=== PATIENT | male | born 1955 | race Caucasian/White ===

== ENCOUNTER 2021-08-24 13:43 | Observation (INO) | payer BC ==
[2021-08-24 14:11] LABS: #Eosinphils 0.1 thou/uL (0.0-0.7); #Lymphocytes 2.3 thou/uL (1.20-3.40); #Monocytes 0.4 thou/uL (0.11-0.59); #Neutrophils 6.1 thou/uL (1.40-6.50); %Basophils 0.2 % (0.0-1.0); %Eosinophils 1.2 % (0.0-10.0); %Lymphocytes 26.1 % (21.0-51.0); %Monocytes 4.4 % (0.0-10.0); %Neutrophils 68.1 % (42.0-75.0); Hemoglobin 14.1 g/dL (14.0-18.0); Mean Corpuscular HGB CONC 32.4 g/dL (32.0-36.0); Mean Corpuscular Hemoglobin 30.3 pg (27.0-31.0); Mean Corpuscular Volume 93.5 fL (78.0-98.0); Mean Platelet Volume 7.4 fL (7.4-10.4); Platelet Count 215 thou/uL (130-400); RBC Distribution Width 11.6 % (11.5-14.5); Red Blood Cell (RBC) Count 4.65 mill/uL (4.70-6.10); White Blood Cell (WBC) Count 8.9 thou/uL (4.8-10.8)
[2021-08-24 14:40] LABS: ALT (SGPT) 78 U/L (8-55); AST (SGOT) 83 U/L (5-34); Albumin 4.3 g/dL (3.4-4.8); Alkaline Phosphatase 42 U/L (40-110); Anion Gap 12 mmol/L (10-20); BUN (Urea Nitrogen) 24 mg/dL (8.4-25.7); Bilirubin, Total 0.4 mg/dL (0.2-1.2); Calc. Creatinine Clearance 0 mL/min (70-130); Calcium 9.6 mg/dL (7.8-10.44); Carbon Dioxide 26 mmol/L (23-31); Chloride 108 mmol/L (98-107); Globulin 3.3 g/dL (2.4-3.5); Glucose 138 mg/dL (80-115); Potassium 4.1 mmol/L (3.5-5.1); Protein, Total 7.6 g/dL (5.8-8.1); Sodium 142 mmol/L (136-145)
[2021-08-24] MEDS ORDERED: Iopamidol 370 76% 100 ML VIAL ONE (15:01)
[2021-08-24] MEDS ORDERED: Lidocaine 1% w/Epinephrine 1:100K 20 ML VIAL ONE (16:22)
[2021-08-24] MEDS ORDERED: Bacitracin 1 PK ONE (16:45)
[2021-08-24] MEDS ORDERED: Boostrix 0.5 ML (Tdap) VIAL ONE (16:49)
[2021-08-24] MEDS ORDERED: Ketorolac Tromethamine 30 MG/ML VIAL ONE (16:49)
[2021-08-24] MEDS ORDERED: Morphine 4 MG/ML VIAL ONE (16:49)
[2021-08-24] MEDS ORDERED: Dextrose 50% Abboject 50 ML SYRINGE SLOW IVP PRN (17:13)
[2021-08-24] MEDS ORDERED: Ondansetron PF 4 MG/2 ML Vial IVP PRN (17:13)
[2021-08-24] MEDS ORDERED: Dextrose 5% in Water 1,000 ML IV PRN (17:13)
[2021-08-24] MEDS ORDERED: Ondansetron ODT 4 MG TAB PO PRN (17:13)
[2021-08-24] MEDS ORDERED: hydrALAZINE 20 MG/ML VIAL SLOW IVP PRN (17:13)
[2021-08-24] MEDS ORDERED: Sodium Chloride 0.9% 1,000 ML IV SCH (17:15)
[2021-08-24] MEDS ORDERED: Rib Fracture Protocol PO SCH (17:15)
[2021-08-24 18:40] VITALS: BMI 26.9
[2021-08-24] MEDS ORDERED: Cyclobenzaprine 10 MG TAB PO PRN (19:31)
[2021-08-24] MEDS: Famotidine 20 MG TAB PO SCH (20:16)
[2021-08-24] MEDS: Gabapentin 300 MG CAP PO SCH (20:16)
[2021-08-24] MEDS: Ibuprofen 200 MG TAB PO SCH (20:16)
[2021-08-25] MEDS: Acetaminophen 500 MG TAB PO SCH ×3 (00:39→11:41)
[2021-08-25] MEDS: traMADol HCl 50 MG TAB PO SCH ×3 (00:39→11:41)
[2021-08-25] MEDS: Ibuprofen 200 MG TAB PO SCH (05:20)
[2021-08-25 05:25] VITALS: TEMP 97.9
[2021-08-25 05:33] LABS: #Eosinphils 0.1 thou/uL (0.0-0.7); #Lymphocytes 1.3 thou/uL (1.20-3.40); #Monocytes 0.6 thou/uL (0.11-0.59); #Neutrophils 4.7 thou/uL (1.40-6.50); %Eosinophils 0.9 % (0.0-10.0); %Lymphocytes 19.8 % (21.0-51.0); %Monocytes 8.9 % (0.0-10.0); %Neutrophils 70.5 % (42.0-75.0); Hemoglobin 12.1 g/dL (14.0-18.0); Mean Corpuscular HGB CONC 34.4 g/dL (32.0-36.0); Mean Corpuscular Volume 93.1 fL (78.0-98.0); Mean Platelet Volume 7.2 fL (7.4-10.4); Platelet Count 160 thou/uL (130-400); RBC Distribution Width 11.7 % (11.5-14.5); Red Blood Cell (RBC) Count 3.78 mill/uL (4.70-6.10); White Blood Cell (WBC) Count 6.7 thou/uL (4.8-10.8)
[2021-08-25 05:55] LABS: Anion Gap 11 mmol/L (10-20); BUN (Urea Nitrogen) 21 mg/dL (8.4-25.7); Calc. Creatinine Clearance 90 mL/min (70-130); Calcium 8.6 mg/dL (7.8-10.44); Carbon Dioxide 27 mmol/L (23-31); Chloride 106 mmol/L (98-107); Glucose 129 mg/dL (80-115); Magnesium 1.9 mg/dL (1.6-2.6); Phosphorus 3.1 mg/dL (2.3-4.7); Potassium 3.8 mmol/L (3.5-5.1); Sodium 140 mmol/L (136-145)
[2021-08-25] MEDS: Gabapentin 300 MG CAP PO SCH (08:40)
[2021-08-25] MEDS: Famotidine 20 MG TAB PO SCH (08:40)
[2021-08-25 11:53] VITALS: BP 139/77
[2021-08-25 11:59] LABS: SARS-CoV-2 PCR by NAA Not Detected (NotDetected)
[2021-08-26] MEDS ORDERED: Levothyroxine Sodium 25 MCG TAB PO SCH (06:00)
[2021-08-26] MEDS ORDERED: Levothyroxine Sodium 112 MCG TAB PO SCH (06:00)
== END 2021-08-25 13:34 | disposition home or self-care (01) ==
LOC: ERS 13:43 → SJJU 16:53
PROVIDERS: ADMIT Surgery; ATTEND Surgery
DX: S22.41XA Multiple fractures of ribs, right side, initial encounter for closed fracture (principal); G89.11 Acute pain due to trauma; R93.5 Abnormal findings on diagnostic imaging of other abdominal regions, including retroperitoneum; N28.1 Cyst of kidney, acquired; I10 Essential (primary) hypertension; E78.5 Hyperlipidemia, unspecified; E03.9 Hypothyroidism, unspecified; S81.811A Laceration without foreign body, right lower leg, initial encounter; K76.0 Fatty (change of) liver, not elsewhere classified; K57.30 Diverticulosis of large intestine without perforation or abscess without bleeding; M50.222 Other cervical disc displacement at C5-C6 level; M48.02 Spinal stenosis, cervical region; Z79.890 Hormone replacement therapy; Z79.899 Other long term (current) drug therapy; Z20.822 Contact with and (suspected) exposure to COVID-19; W11.XXXA Fall on and from ladder, initial encounter
CPT/HCPCS: 36415; 70450; 71045; 71260; 72125; 72170; 74177; 80048; 80053; 83735; 84100; 85025; 86850; 86900; 86901; 90471; 90715; 93005; 94640; 96374; G0378; G0390; J1885; J2270; J7050; J7620; Q9967; U0003; U0005

== ENCOUNTER 2021-09-09 12:21 | Outpatient (CLI) | payer BC | END 2021-09-09 12:22 | disposition home or self-care (01) | LOC: BICRAD 12:21 | PROVIDERS: ATTEND Surgery | DX: S22.41XA Multiple fractures of ribs, right side, initial encounter for closed fracture (principal) | CPT/HCPCS: 71046 ==

== ENCOUNTER 2021-12-16 09:03 | Outpatient (CLI) | payer BC ==
[~2021-12-16 09:03] MED LIST: Iopamidol 370 76% 100 ML VIAL ONE
== END 2021-12-16 09:04 | disposition home or self-care (01) ==
LOC: CT 09:03
PROVIDERS: ATTEND Family Medicine
DX: S22.41XA Multiple fractures of ribs, right side, initial encounter for closed fracture (principal); R93.89 Abnormal findings on diagnostic imaging of other specified body structures; R59.1 Generalized enlarged lymph nodes; K76.0 Fatty (change of) liver, not elsewhere classified; N28.1 Cyst of kidney, acquired; D35.01 Benign neoplasm of right adrenal gland; M48.56XA Collapsed vertebra, not elsewhere classified, lumbar region, initial encounter for fracture
CPT/HCPCS: 74178; 82565; Q9967

== ENCOUNTER 2022-04-13 10:29 | Outpatient (CLI) | payer BC | END 2022-04-13 10:30 | disposition home or self-care (01) | LOC: DTY/OP 10:29 | PROVIDERS: ATTEND Family Medicine | DX: E11.9 Type 2 diabetes mellitus without complications (principal); Z71.3 Dietary counseling and surveillance | CPT/HCPCS: 97802 ==

== ENCOUNTER 2023-09-16 08:59 | Outpatient (CLI) | payer BC | END 2023-09-16 09:00 | disposition home or self-care (01) | LOC: MRI 08:59 | PROVIDERS: ATTEND Psychiatry & Neurology Neurology | DX: M48.02 Spinal stenosis, cervical region (principal); M50.222 Other cervical disc displacement at C5-C6 level; M50.322 Other cervical disc degeneration at C5-C6 level; M47.812 Spondylosis without myelopathy or radiculopathy, cervical region | CPT/HCPCS: 72141 ==

== ENCOUNTER 2025-01-24 08:43 | Outpatient (CLI) | payer BC | END 2025-01-24 08:44 | disposition home or self-care (01) | LOC: BICMRI 08:43 | PROVIDERS: ATTEND Family Medicine | DX: R20.2 Paresthesia of skin (principal) | CPT/HCPCS: 70551 ==